=== PATIENT | female | born 1990 | race Caucasian/White ===

== ENCOUNTER 2017-05-02 18:36 | Emergency (ER) | payer SELFPAY ==
[2017-05-02 19:13] VITALS: BP 134/92; PULSE 91; TEMP 98.2; BMI 36.8
--- NOTE | 2017-05-02 19:31 | PDOC ---
History of Present Illness - General Chief Complaint: Back Pain Stated Complaint: BACK PAIN Time Seen by Provider: 05/02/17 19:13 History Source: Patient Exam Limitations: No Limitations - History of Present Illness Initial Comments: CHIEF COMPLAINT: 27 y/o afebrile female with no significant PMH c/o right sided upper back pain for 1 week. 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 ABout 1 week ago she started having the pain and it's worse with movement. She has tried taking tylenol and excedrin for the pain with little relief. She denies cough, f/c, trauma to back, fall, n/v/d, CP , SOB, abd pain, numbness/tingling in extremities and all other symptoms. Vital signs on arrival are within normal limits. REVIEW OF SYSTEMS: GENERAL/CONSTITUTIONAL: No fever/chills. No weakness. No weight change. CHEST: No SOB or CP. GASTROINTESTINAL: No abd pain, nausea, vomiting, diarrhea. GENITOURINARY: No dysuria, frequency, or change in urination. MUSCULOSKELETAL: +right upper back pain. SKIN: No rash or easy bruising. NEUROLOGIC: No headache, vertigo, loss of consciousness, or loss of sensation. PHYSICAL EXAM: GENERAL: The patient is awake, alert, and fully oriented, in no acute distress. She is obese, ambulatory, well appearing, in NAD or obvious discomfort. LUNGS: CTA across all solares. CHEST WALL: Reproducible pain with palpation of posterior right ribs, T4-T6, no crepitus or deformities. ABDOMEN: Soft, non-distended, non-tender even to deep palpation, no hepatomegaly or splenomegaly, no masses. BACK: No midline thoracic spine TTP or step offs. EXTREMITIES: Normal range of motion, no edema. NEUROLOGICAL: Normal speech, normal gait. CN II-XII grossly intact. SKIN: Warm, dry, normal turgor, no rashes or lesions noted. Past History - Past Medical History Allergies/Adverse Reactions: Allergies Allergy/AdvReac Type Severity Reaction Status Date / Time naproxen sodium [From Aleve] Allergy Hives Verified 05/02/17 19:11 Home Medications: Ambulatory Orders NK [No Known Home Medication] 05/02/17 COPD: No - Suicide/Smoking/Psychosocial Hx Smoking History: Never smoked Hx Alcohol Use: No Drug/Substance Use Hx: No Substance Use Type: None *Physical Exam - Vital Signs Last Vital Signs Temp Pulse Resp BP Pulse Ox 98.2 F 91 H 18 134/92 99 05/02/17 19:11 05/02/17 19:11 05/02/17 19:11 05/02/17 19:11 05/02/17 19:11 Medical Decision Making - Medical Decision Making A/P: 27 y/o female with musculoskeletal pain. Suggested the patient take a test so I could give her NSAIDs, but she prefers not to wait and will take Motrin at home for symptoms. Suggested she apply heat to the affected area and avoid lifting until feeling better. The patient verbalizes understanding of all instructions, has no further questions and is awaiting discharge. *DC/Admit/Observation/Transfer Diagnosis at time of Disposition: Musculoskeletal pain - Discharge Dispostion Disposition: HOME Condition at time of disposition: Good - Referrals Referrals: Christian Vazquez MD [Primary Care Provider] - - Patient Instructions Printed Discharge Instructions: DI for Musculoskeletal Pain Additional Instructions: Discharge Instructions: -You have muscle pain -IF you are not , you can take 600mg of over the counter Ibuprofen every 6 hours with food for pain -Apply heat to the affected area for comfort. -Avoid heavy lifting until feeling better -Return to the eR with any worsening or concerning symptoms - Post Discharge Activity
== END 2017-05-02 19:37 | disposition home or self-care (01) ==
LOC: JERFT 18:36
DX: M54.6 Pain in thoracic spine (principal)
CPT/HCPCS: 99281-25

== ENCOUNTER 2023-06-23 04:46 | Day surgery (SDC) | payer BC ==
[2023-06-20 12:25] VITALS: BMI 37.3
[2023-06-23 12:17] VITALS: TEMP 98
[2023-06-23 13:00] VITALS: BP 117/73; PULSE 91; RESP 18
== END 2023-06-23 13:10 | disposition home or self-care (01) ==
LOC: JASU-ENDO 04:46
PROVIDERS: ATTEND Internal Medicine Gastroenterology
PROC: 0DB78ZX Excision of Stomach, Pylorus, Via Natural or Artificial Opening Endoscopic, Diagnostic (ICD-10-PCS; 2023-06-23)
PROC: 0DB68ZX Excision of Stomach, Via Natural or Artificial Opening Endoscopic, Diagnostic (ICD-10-PCS; principal; 2023-06-23 11:30)
DX: K29.50 Unspecified chronic gastritis without bleeding (principal); B96.81 Helicobacter pylori [H. pylori] as the cause of diseases classified elsewhere; Z80.0 Family history of malignant neoplasm of digestive organs
CPT/HCPCS: 81025; 88305-TC; 88341-TC; 88342-TC